=== PATIENT | male | born 1955 | race Asian ===

== ENCOUNTER 2017-05-24 21:04 | Inpatient (IN) | payer OTHER ==
--- NOTE | 2017-05-24 21:20 | PDOC ---
History of Present Illness - General History Source: Patient Exam Limitations: No Limitations - History of Present Illness Initial Comments: 05/24/17 22:21 Patient is a 61 year old male with a significant past medical history of BPH and Hep B who presents to the ED with son complaining of mid epigastric and RUQ pain since 13:00hrs today. Patient describes the pain as 8/10 in severity with no alleviating or exacerbating factors. Patient denies any vomiting, constipation, diarrhea, hematochezia or nausea. PSH - none ALL - none SH - denies any alcohol use, tobacco use, IVDU. <Ijeoma Koch - Last Filed: 05/24/17 22:20> <Kyung Cabrera - Last Filed: 05/25/17 05:05> - General Chief Complaint: Pain Stated Complaint: ABDOMINAL PAIN Time Seen by Provider: 05/24/17 21:14 Past History <Ijeoma Koch - Last Filed: 05/24/17 22:20> - Past Medical History Other medical history: denies - Psycho/Social/Smoking Cessation Hx Suicidal Ideation: No Smoking History: Never smoked <Kyung Cabrera - Last Filed: 05/25/17 05:05> - Past Medical History Allergies/Adverse Reactions: Allergies Allergy/AdvReac Type Severity Reaction Status Date / Time No Known Allergies Allergy Verified 05/24/17 21:08 Home Medications: Ambulatory Orders Tenofovir Disoproxil Fumarate [Viread] 300 mg PO DAILY 05/25/17 Review of Systems - Review of Systems Able to Perform ROS?: Yes Comments:: 05/24/17 22:21 GENERAL/CONSTITUTIONAL: No fever or chills. No weakness. HEAD, EYES, EARS, NOSE AND THROAT: No change in vision. No ear pain or discharge. No sore throat. CARDIOVASCULAR: No chest pain or shortness of breath. RESPIRATORY: No cough, wheezing, or hemoptysis. GASTROINTESTINAL: (+)abdominal pain. No nausea, vomiting, diarrhea or constipation. GENITOURINARY: No dysuria, frequency, or change in urination. MUSCULOSKELETAL: No joint or muscle swelling or pain. No neck or back pain. SKIN: No rash NEUROLOGIC: No headache, vertigo, loss of consciousness, or change in strength/ sensation. ENDOCRINE: No increased thirst. No abnormal weight change. HEMATOLOGIC/LYMPHATIC: No anemia, easy bleeding, or history of blood clots. ALLERGIC/IMMUNOLOGIC: No hives or skin allergy. <Ijeoma Koch - Last Filed: 05/24/17 22:20> *Physical Exam - Vital Signs Last Vital Signs Temp Pulse Resp BP Pulse Ox 97.4 F L 51 L 18 124/69 99 05/24/17 21:05 05/24/17 21:05 05/24/17 21:05 05/24/17 21:05 05/24/17 21:05 - Physical Exam Comments: 05/24/17 22:22 GENERAL: Awake, alert, and fully oriented, in no acute distress HEAD: No signs of trauma EYES: PERRLA, EOMI, sclera anicteric, conjunctiva clear ENT: Auricles normal inspection, hearing grossly normal, nares patent, oropharynx clear without exudates. Moist mucosa NECK: Normal ROM, supple, no lymphadenopathy, JVD, or masses LUNGS: Breath sounds equal, clear to auscultation bilaterally. No wheezes, and no crackles HEART: Regular rate and rhythm, normal S1 and S2, no murmurs, rubs or gallops ABDOMEN: (+)epigastric tenderness, rebound. Soft, normoactive bowel sounds. No guarding. No masses EXTREMITIES: Normal range of motion, no edema. No clubbing or cyanosis. No cords, erythema, or tenderness NEUROLOGICAL: Cranial nerves II through XII grossly intact. Normal speech, normal gait SKIN: Warm, Dry, normal turgor, no rashes or lesions noted. <Ijeoma Koch - Last Filed: 05/24/17 22:20> - Vital Signs Last Vital Signs Temp Pulse Resp BP Pulse Ox 97.4 F L 51 L 18 124/69 99 05/24/17 21:05 05/24/17 21:05 05/24/17 21:05 05/24/17 21:05 05/24/17 21:05 <Kyung Cabrera - Last Filed: 05/25/17 05:05> ED Treatment Course - LABORATORY CBC & Chemistry Diagram: 05/24/17 21:55 05/24/17 21:55 - Medications Given in the ED: ED Medications Discontinued Medications Generic Name Dose Route Start Last Admin Trade Name Freq PRN Reason Stop Dose Admin Acetaminophen 1,000 mg 05/24/17 22:05 05/24/17 22:18 Ofirmev Injection - IVPB 05/24/17 22:06 1,000 mg ONCE ONE Administration Morphine Sulfate 2 mg 05/24/17 21:38 05/24/17 21:55 Morphine Injection - IVPUSH 05/24/17 21:39 2 mg ONCE ONE Administration Sodium Chloride 1,000 ml 05/24/17 21:38 05/24/17 21:55 Normal Saline - IV 05/24/17 21:39 1,000 ml ONCE ONE Administration <Ijeoma Koch - Last Filed: 05/24/17 22:20> - LABORATORY CBC & Chemistry Diagram: 05/24/17 21:55 05/24/17 21:55 <Kyung Cabrera - Last Filed: 05/25/17 05:05> Medical Decision Making - Medical Decision Making 05/24/17 22:28 Pt comes with upper abdominal pain that began suddenly at 1PM while he was eating rice soup. Pt has no hx of GB disease. Only hepatitis, for which he takes antiviral meds. Pt has no Past surgical history. He is afebrile. He had an episode of intense pain after we treated with morphine (?sphincter of oddi) however on exam he has no RUQ tenderness with deep palpation and he has only mid -moderate pain with palpation of the epigastric area. It is unclear if pt's pain reflects Inferior ischemic disease of heart, or if he has pancreatic disease or if this is exacerbation of hepatitis, or it it is GB disease or gastritis and gastric perf - though pt's abd is not rigid and he has no fever.. Labs pending. We will order imaging studies based on lab results. Ofirmev and pepcid added for pain control. EKG is NSR 05/24/17 22:35 CXR is normal 05/25/17 00:34 Patient Name: Lisbeth Archuleta THIS IS A PRELIMINARYREPORT FROM [facility] EXAM: CT abdomen and pelvis with contrast IMAGES: 405 INDICATION: Epigastric pain. History of hepatitis. DATE OF SERVICE: 2017-05-24 23:42:12.0 COMPARISON : none FINDINGS: Lung bases are clear. The visualized cardiac chambers are normal size and configuration. Multiple hepatic cysts are noted. Note is made of a 7 mm nonobstructing right renal stone. Gallbladder is distended and there may be pericholecystic edema. Cholecystitis is considered. No biliary duct dilation. Normal pancreas, spleen, adrenal glands and left kidney. The stomach and abdominal small and large bowel are normal. There is no aortic aneurysm. There is no significant retroperitoneal lymphadenopathy. Small fat containing umbilical hernia noted. The pelvic small and large bowel are normal. The appendix is normal. The urinary bladder a normal. The nd prostate gland is moderately enlarged. No pelvic free fluid is identified. There is no significant pelvic lymphadenopathy. IMPRESSION: Possible cholecystitis can be correlated with ultrasound. Small nonobstructing right renal stone. Moderate prostate enlargement. THIS DOCUMENT HAS BEEN ELECTRONICALLY SIGNED Pt's son and both suffer with gallstones. Ptis feeling better after pain med cocktail, and hydration. We will send him for US to r/o cholecystitis 05/25/17 03:01 Patient Name: Lisbeth Archuleta THIS IS A PRELIMINARYREPORT FROM [facility] EXAM: Ultrasound abdomen limited, right upper quadrant and limited abdominal duplex IMAGES: 68 INDICATION: Rule out cholecystitis DATE OF SERVICE: 2017-04 01:09:19.0 COMPARISON: none FINDINGS: Right upper quadrant ultrasound: The liver is normal, without mass or biliary duct dilation. The gallbladder is distended, contains polyps and/or stones with wall thickening up to 5 mm and mild pericholecystic edema. Findings are suspicious for cholecystitis.. The CBD is not dilated and measures5 millimeters in diameter. Right kidney measures 12.3centimeters in length and is unremarkable. The visualized aorta and IVC are normal. Pancreas is partially obscured, but appears normal. Abdominal duplex: The main portal vein demonstrates normal hepatopedal flow. IMPRESSION: Suspected cholecystitis. 05/25/17 05:05 PT ADMITTED TO THE [facility]OSPITALIST FOR CHOLECYSTITS. HE RECEIVED 1 DOSE OF ZOSYN. <Kyung Cabrera - Last Filed: 05/25/17 05:05> *DC/Admit/Observation/Transfer - Attestations Scribe Attestion: 05/24/17 22:23 Documentation prepared by TERESA Flanagan, acting as medical collections specialist for Kyung Cabrera MD. <Ijeoma Koch - Last Filed: 05/24/17 22:20> - Discharge Dispostion Admit: Yes <Kyung Cabrera - Last Filed: 05/25/17 05:05> Diagnosis at time of Disposition: Cholecystitis - Discharge Dispostion Condition at time of disposition: Guarded - Referrals
[2017-05-24] MEDS ORDERED: SODIUM CHLORIDE 0.9% 500 ML INFUS.BAG IV ONE (21:38)
[2017-05-24] MEDS ORDERED: morphine CARPU-JECT 2 MG/1 ML DISP.SYRIN IVPUSH ONE (21:38)
[2017-05-24] MEDS ORDERED: morphine CARPU-JECT 4 MG/1 ML DISP.SYRIN ONE (21:41)
[2017-05-24] MEDS ORDERED: FAMOTIDINE 20 MG/50 ML IVPB 50 ML IVPB ONE ×2 (22:05→22:07)
[2017-05-24] MEDS ORDERED: ACETAMINOPHEN 1000 MG/100 ML VIAL (NON FORMULARY) IVPB ONE (22:05)
[2017-05-24] MEDS ORDERED: ACETAMINOPHEN INJECTION 100 ML IVPB ONE (22:07)
[2017-05-24 22:20] LABS: BASOPHIL 0.4 % (0-2.0); EOSINOPHIL 1.5 % (0-4.5); MCH 29.4 pg (25.7-33.7); MCHC 33.2 g/dl (32.0-35.9); MEAN CELL VOLUME 88.5 fl (80-96); MEAN PLT VOLUME 9.5 fl (7.5-11.1); NEUTROPHILS 70.4 % (42.8-82.8); PLATELET COUNT 164 K/MM3 (134-434); RDW 13.7 % (11.9-15.9); WHITE BLOOD COUNT 9.4 K/mm3 (4.0-10.0)
[2017-05-24 22:42] LABS: ALBUMIN 4.4 g/dl (3.4-5.0); ANION GAP 8 (8-16); BILIRUBIN,TOTAL 0.5 mg/dL (0.2-1.0); CALCIUM 8.8 mg/dL (8.5-10.1); CO2 27 mmol/L (21-32); CREATININE 0.7 mg/dL (0.7-1.3); GLUCOSE,RANDOM 103 mg/dL (74-106); SGOT/AST 25 U/L (15-37); SGPT/ALT 33 U/L (12-78); TOT PROT 7.7 g/dl (6.4-8.2)
[2017-05-24 22:44] LABS: ALK PHOS 68 U/L (45-117); CPK 278 IU/L (39-308); TROPONIN I < 0.02 ng/ml (0.00-0.05)
[2017-05-24] MEDS ORDERED: MAGNESIUM SULF 50% (8.12 MEQ/2 ML-1 GM VIAL) IVPB ONE (22:49)
[2017-05-24] MEDS ORDERED: POTASSIUM CHLORIDE TABS 20 MEQ TABLET.ER (FP) PO ONE (22:49)
[2017-05-24 23:28] LABS: URINE APPEARANCE CLEAR; URINE BILIRUBIN NEGATIVE (NEGATIVE); URINE BLOOD NEGATIVE (NEGATIVE); URINE COLOR LTYELLOW; URINE GLUCOSE (UA) NEGATIVE (NEGATIVE); URINE KETONE NEGATIVE (NEGATIVE); URINE LEUK ESTERASE NEGATIVE (NEGATIVE); URINE NITRITE NEGATIVE (NEGATIVE); URINE PROTEIN NEGATIVE (NEGATIVE); URINE UROBILINOGEN NEGATIVE mg/dL (0.2-1.0)
[2017-05-24 23:39] LABS: INR 1.11 (0.82-1.09); PROTHROMBIN TIME (PATIENT) 12.2 SEC (9.98-11.88)
[2017-05-25 00:31] LABS: AMYLASE 72 U/L (25-115)
[2017-05-25] MEDS ORDERED: MAGNESIUM SULF 50% (8.12 MEQ/2 ML-1 GM VIAL) ONE (00:57)
[2017-05-25] MEDS ORDERED: POTASSIUM CHLORIDE ORAL LIQUID 20 MEQ/15 ML ONE (00:57)
[2017-05-25] MEDS ORDERED: PIPERACILLIN/TAZOB 3.375 GM 3.375 GM in DEXTROSE 5%-WATER - 50 ML IVPB ONE (01:54)
[2017-05-25] MEDS ORDERED: PIPERACILLIN/TAZOB 3.375 GM 50 ML IVPB ONE (02:30)
--- NOTE | 2017-05-25 03:28 | HP ---
Admitting History and Physical - Admission Chief Complaint: ruq pain History of Present Illness: 61 yo m w hx of bph who presents to the er for eval of ruq pain for several hours. patient's dtr at bedside and provided translation. he reports pain starting yesterday in the afternoon and progressively getting worse throughout the day. he states the pain was 10/10 no aggravating alleviating factors, no radiation, unable to qualify pain. he denies feeling like this before. denies gall bladder problems in the past. he denies fever, body aches, vomiting, nausea, dysuria, diarrhea, melena. he reports having normal bm yesterday. he deneis sob, cp, heart palps, syncope. 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, denies tobacco, alcohol famhx - nc ros neg except for hpi physical gen- in nad, comfortable hent- at/nc, fercho, neck supple, trachea midline, no lymphadenopathy, mucous membrane dry resp- no cough, lungs ctab, no ronchi, no rales cards- rrr, no murmurs, no rubs, no jvd, no leg edema skin- no rash, no lesions gi- soft non-tender, no guarding, no rebound, no rigidity, no distention neuro- alert, oriented, cn 2-12 grossly intact, no seizures, speech clear, no facial droop, psych- cooperative, no agitation musk- normal arom bue/ble gu- mild right cvat, no left cvat prob list ?cholecystitis kidney stones hypokalemia abdominal pain imaging: EXAM: Ultrasound abdomen limited, right upper quadrant and limited abdominal duplex IMAGES: 68 INDICATION: Rule out cholecystitis DATE OF SERVICE: 2017-04 01:09:19.0 COMPARISON: none FINDINGS: Right upper quadrant ultrasound: The liver is normal, without mass or biliary duct dilation. The gallbladder is distended, contains polyps and/or stones with wall thickening up to 5 mm and mild pericholecystic edema. Findings are suspicious for cholecystitis.. The CBD is not dilated and measures5 millimeters in diameter. Right kidney measures 12.3centimeters in length and is unremarkable. The visualized aorta and IVC are normal. Pancreas is partially obscured, but appears normal. Abdominal duplex: The main portal vein demonstrates normal hepatopedal flow. IMPRESSION: Suspected cholecystitis. EXAM: CT abdomen and pelvis with contrast IMAGES: 405 INDICATION: Epigastric pain. History of hepatitis. DATE OF SERVICE: 2017-05-24 23:42:12.0 COMPARISON : none FINDINGS: Lung bases are clear. The visualized cardiac chambers are normal size and configuration. Multiple hepatic cysts are noted. Note is made of a 7 mm nonobstructing right renal stone. Gallbladder is distended and there may be pericholecystic edema. Cholecystitis is considered. No biliary duct dilation. Normal pancreas, spleen, adrenal glands and left kidney. The stomach and abdominal small and large bowel are normal. There is no aortic aneurysm. There is no significant retroperitoneal lymphadenopathy. Small fat containing umbilical hernia noted. The pelvic small and large bowel are normal. The appendix is normal. The urinary bladder a normal. The nd prostate gland is moderately enlarged. No pelvic free fluid is identified. There is no significant pelvic lymphadenopathy. IMPRESSION: Possible cholecystitis can be correlated with ultrasound. Small nonobstructing right renal stone. Moderate prostate enlargement. a/p- 61 yo m w hx of bph who presents to the er for eval of ruq pain for several hours. admitted for eval of their emergent condition 1. abdominal pain possibly related to cholecystitis v renal colic ctap and abd us suspicous for acute michael Hida scan Gi consult Pain control Abx (ctx) IV Fluids Npo 2. hypokalemia Replete prn Monitor labs dvt prophy scd, oob, hep sq fen npo, ivf dispo- requires > 2mn stay for ? acute cholecystitis pt dtr will bring in home meds History Source: Patient, Family Member Limitations to Obtaining History: Language Barrier - Smoking History Smoking history: Never smoked Home Medications - Allergies Allergies/Adverse Reactions: Allergies Allergy/AdvReac Type Severity Reaction Status Date / Time No Known Allergies Allergy Verified 05/24/17 21:08 - Home Medications Home Medications: Ambulatory Orders Tenofovir Disoproxil Fumarate [Viread] 300 mg PO DAILY 05/25/17 Physical Examination Vital Signs: Vital Signs Temperature 97.4 F L 05/24/17 21:05 Pulse Rate 51 L 05/24/17 21:05 Respiratory Rate 18 05/24/17 21:05 Blood Pressure 124/69 05/24/17 21:05 O2 Sat by Pulse Oximetry (%) 99 05/24/17 21:05 Labs: CBC, BMP 05/24/17 21:55 05/24/17 21:55 Visit type - Emergency Visit Emergency Visit: Yes ED Registration Date: 05/25/17 Care time: The patient presented to the Emergency Department on the above date and was hospitalized for further evaluation of their emergent condition. - New Patient This patient is new to me today: Yes Date on this admission: 05/25/17 - Critical Care Critical Care patient: No
[2017-05-25] MEDS ORDERED: SODIUM CHLORIDE 1,000 ML IV SCH (03:30)
[2017-05-25] MEDS ORDERED: HYDROmorphone HCL CARPU-JECT 1 MG/1 ML DISP.SYRIN IVPB PRN (03:30)
[2017-05-25] MEDS ORDERED: ACETAMINOPHEN 1000 MG/100 ML VIAL (NON FORMULARY) IVPB PRN (03:30)
[2017-05-25 04:34] VITALS: BMI 29.4
--- NOTE | 2017-05-25 06:37 | PN ---
Teaching Attending Note Name of Resident: Naheed Schultz ATTENDING PHYSICIAN STATEMENT: Patient is seen by me chart reviewed and discussed with the resident team, agrees with evaluation and plan of care61 yrs old chines speaking man H/O Hep B and BPH currently not on any medication present with Rt UQ pain 10/10 constant started after eating jose in the after noon associated nausea, but no vomiting or diarrhea, last BM was yesterday am, also c/o subjective chills, no fever, came to Ed for evaluation, in the ED Hypodermically stable w/u shows Distended GB with thickened wall suggestive of acute Cholycystitis Today; Miiddle aged man sleeping comfortably Vitals; Last Vital Signs Temp Pulse Resp BP Pulse Ox 99.1 F 78 18 124/69 99 05/25/17 04:27 05/25/17 04:27 05/25/17 04:27 05/25/17 04:27 05/25/17 04:39 HEENT: MM moist no anemia NECK: No JVD No Bruit CHEST: CTA B/L CVS; S1S2 R no m/g/r ABD: Obese no distention, RT UQ and epigastric tend +, rebound +, BS + EXT: No taiwo afeet, no calf tenderness, pulses + HYPERION ADMINISTRATOR: Aox3 non focal normal motor sensory exam. LABS: WBC 9.4 K/mm3 (4.0-10.0) 05/24/17 21:55 RBC 5.14 M/mm3 (4.00-5.60) 05/24/17 21:55 Hgb 15.1 GM/dL (11.7-16.9) 05/24/17 21:55 Hct 45.5 % (35.4-49) 05/24/17 21:55 MCV 88.5 fl (80-96) 05/24/17 21:55 MCH 29.4 pg (25.7-33.7) 05/24/17 21:55 MCHC 33.2 g/dl (32.0-35.9) 05/24/17 21:55 RDW 13.7 % (11.9-15.9) 05/24/17 21:55 Plt Count 164 K/MM3 (134-434) 05/24/17 21:55 MPV 9.5 fl (7.5-11.1) 05/24/17 21:55 Neutrophils % 70.4 % (42.8-82.8) 05/24/17 21:55 Lymphocytes % 22.6 % (8-40) 05/24/17 21:55 Monocytes % 5.1 % (3.8-10.2) 05/24/17 21:55 Eosinophils % 1.5 % (0-4.5) 05/24/17 21:55 Basophils % 0.4 % (0-2.0) 05/24/17 21:55 Sodium 140 mmol/L (136-145) 05/24/17 21:55 Potassium 3.4 mmol/L (3.5-5.1) L 05/24/17 21:55 Chloride 105 mmol/L (98-107) 05/24/17 21:55 Carbon Dioxide 27 mmol/L (21-32) 05/24/17 21:55 Anion Gap 8 (8-16) 05/24/17 21:55 BUN 19 mg/dL (7-18) H 05/24/17 21:55 Creatinine 0.7 mg/dL (0.7-1.3) 05/24/17 21:55 Creat Clearance w eGFR > 60 (>60) 05/24/17 21:55 Random Glucose 103 mg/dL (74-106) 05/24/17 21:55 Calcium 8.8 mg/dL (8.5-10.1) 05/24/17 21:55 Total Bilirubin 0.5 mg/dL (0.2-1.0) 05/24/17 21:55 AST 25 U/L (15-37) 05/24/17 21:55 ALT 33 U/L (12-78) 05/24/17 21:55 Alkaline Phosphatase 68 U/L (45-117) 05/24/17 21:55 Creatine Kinase 278 IU/L (39-308) 05/24/17 21:55 Creatine Kinase Index 1.9 % (0.0-5.0) 05/24/17 21:55 CK-MB (CK-2) 5.549 ng/mL (0.5-3.6) H 05/24/17 21:55 Troponin I < 0.02 ng/ml (0.00-0.05) 05/24/17 21:55 Total Protein 7.7 g/dl (6.4-8.2) 05/24/17 21:55 Albumin 4.4 g/dl (3.4-5.0) 05/24/17 21:55 Total Amylase 72 U/L (25-115) 05/24/17 21:55 Lipase 274 U/L (73-393) 05/24/17 21:55 CXR: No acute changes CT abdomen: Thickened GB wall suggestive of acute cholycystitis ABD; Ultrasound:Thickened GB wall with distention and
--- NOTE | 2017-05-25 08:10 | PN ---
Physical Exam: SUBJECTIVE: Patient seen and examined with his daughter at the bedside. Patient now states that his RUQ pain has improved, denies nausea or vomiting. Denies chest pain. Wants to eat. OBJECTIVE: In bed resting, in no acute distress + bowel sounds NPO, diet as per GI Chest xray with clear lungs, large heart Vital Signs Period Temp Pulse Resp BP Sys/Orellana Pulse Ox Last 24 Hr 99.1 F 78 18 124/69 99 GENERAL: The patient is awake, alert, and fully oriented, in no acute distress. HEAD: Normal with no signs of trauma. EYES: PERRL, extraocular movements intact, sclera anicteric, conjunctiva clear. ENT: Ears normal, nares patent, oropharynx clear without exudates, moist mucous membranes. NECK: Trachea midline, full range of motion, supple. LUNGS: Breath sounds equal, clear to auscultation bilaterally, no wheezes, no crackles, no accessory muscle use. HEART: Regular rate and rhythm, S1, S2 without murmur, rub or gallop. ABDOMEN: Soft, nontender, nondistended, normoactive bowel sounds, denies RUQ pain, denies any abdominal pain, nausea or diarrhea rebound, no hepatosplenomegaly, no masses. EXTREMITIES: no edema. NEUROLOGICAL: Normal speech, gait not observed. PSYCH: Normal mood, normal affect. SKIN: Warm, dry, normal turgor, no rashes or lesions noted Active Medications Generic Name Dose Route Start Last Admin Trade Name Freq PRN Reason Stop Dose Admin Acetaminophen 1,000 mg 05/25/17 03:30 Ofirmev Injection - IVPB 05/25/17 21:31 Q6H PRN FEVER OR PAIN Heparin Sodium (Porcine) 5,000 unit 05/25/17 10:00 Heparin - SQ BID HAIM Hydromorphone HCl 1 mg 05/25/17 03:30 Dilaudid Injection - IVPB Q6H PRN PAIN Sodium Chloride 1,000 mls @ 100 mls/hr 05/25/17 03:30 05/25/17 05:12 Normal Saline - IV 100 mls/hr ASDIR HAIM Administration Ceftriaxone Sodium 1 gm/ 50 mls @ 100 mls/hr 05/25/17 10:00 Dextrose IVPB 05/25/17 10:29 ONCE ONE Metronidazole 100 mls @ 100 mls/hr 05/25/17 10:00 Flagyl 500mg Premixed Ivpb - IVPB Q8H-IV HAIM ASSESSMENT/PLAN: Patient is a 61 year old male with a significant past medical history of BPH and hepatitis B. He presented to the ER on 05/25/2017 with complaints of RUQ pain for several hours. RUQ started yesterday and progressively worsened throughout the day. Patient denies that he has had this pain before. He denies fever, body aches, vomiting, nausea, dysuri or diarrhea. He denies shortness of breath or chest pain. GI: Possible acute Cholecystitis vs. renal colic A/P: RUQ pain improving today, denies pain on light palpation of abdomen NPO until evaluated by GI and surgery NS @ 100cc/hr On Ceftriaxone 1gram daily and Flagyl q8 Dilaudid for pain Abdominal CT scan, Abdominal u/s pending read HIDA scan ordered GI and surgery consulted by night team Hepatitis B A/P: On Tenofovir 300mg PO daily Hold as pt is NPO Cardiology: EKG 05/25/2017: sinus bradycardia @51 Troponin x 1 negative Denies chest pain, shortness of breath F.E.N. Fluids: Normal saline @100cc/hr Electrolytes: mild hypokalemia @3.4, monitor and replete if continues to trend down Nutrition: NPO, bowel rest Prophylaxis: GI: Protonix ivpb DVT: Heparin BID, ambulation. Disposition: Requires hospitalization for his acute medical condition. Full Code. Visit type - Emergency Visit Emergency Visit: Yes ED Registration Date: 05/25/17 Care time: The patient presented to the Emergency Department on the above date and was hospitalized for further evaluation of their emergent condition. - New Patient This patient is new to me today: Yes Date on this admission: 05/25/17 - Critical Care Critical Care patient: No - Discharge Referral Referred to [facility] No
[2017-05-25 08:21] LABS: INR 1.23 (0.82-1.09); PROTHROMBIN TIME (PATIENT) 13.6 SEC (9.98-11.88)
[2017-05-25 08:29] LABS: ALBUMIN 3.9 g/dl (3.4-5.0); ALK PHOS 83 U/L (45-117); ANION GAP 8 (8-16); BILIRUBIN,TOTAL 1.5 mg/dL (0.2-1.0); CALCIUM 8.3 mg/dL (8.5-10.1); CO2 24 mmol/L (21-32); CREATININE 0.6 mg/dL (0.7-1.3); GLUCOSE,RANDOM 101 mg/dL (74-106); SGOT/AST 189 U/L (15-37); SGPT/ALT 156 U/L (12-78); TOT PROT 6.4 g/dl (6.4-8.2)
[2017-05-25 09:00] LABS: MCH 29.8 pg (25.7-33.7); MCHC 33.6 g/dl (32.0-35.9); MEAN CELL VOLUME 88.7 fl (80-96); MEAN PLT VOLUME 9.2 fl (7.5-11.1); PLATELET COUNT 129 K/MM3 (134-434); RDW 13.5 % (11.9-15.9); WHITE BLOOD COUNT 11.6 K/mm3 (4.0-10.0)
[2017-05-25] MEDS: METRONIDAZOLE 500 MG PREMIXED 100 ML IVPB SCH ×2 (09:30→17:40)
[2017-05-25] MEDS ORDERED: CEFTRIAXONE 1 GM in DEXTROSE 5%-WATER - 50 ML IVPB ONE (10:00)
[2017-05-25] MEDS ORDERED: PANTOPRAZOLE SODIUM 100 ML IVPB SCH (10:00)
[2017-05-25 10:23] LABS: PLATELET ESTIMATE SLT DECREASED (NORMAL)
[2017-05-25] MEDS: KCL 10 MEQ IVPB 100 ML IVPB SCH ×4 (10:47→23:54)
[2017-05-25] MEDS ORDERED: cefTRIAXone SODIUM 1 GM VIAL ONE (11:00)
[2017-05-25] MEDS ORDERED: DEXTROSE 5%-WATER - 50 ML IVPB ONE (11:00)
[2017-05-25] MEDS: HEPARIN NA (PORCINE) 5,000 UNITS/ML 1ML VIAL SQ SCH ×2 (11:14→21:31)
[2017-05-25] MEDS ORDERED: PANTOPRAZOLE SODIUM 40 MG VIAL ONE (12:00)
[2017-05-25] MEDS ORDERED: SODIUM CHLORIDE 100 ML IVPB ONE (12:01)
[2017-05-25] MEDS: PANTOPRAZOLE SODIUM 40 MG in SODIUM CHLORIDE 100 ML IVPB SCH (12:10)
[2017-05-25] MEDS ORDERED: KCL 10 MEQ IVPB 100 ML IVPB SCH (14:45)
[2017-05-25] MEDS: SODIUM CHLORIDE 0.9%/KCL 1,000 ML IV SCH (14:57)
--- NOTE | 2017-05-25 14:58 | PN ---
Progress Note (short form) - Note Progress Note: GI CONSULTATION: SEE COMPLETE DICTATION HX VIA SON TRANSLATING 61 M BPH/CHRONIC HBV ON VIREAD ADMIT WITH ACUTE CHOLECYSITITS WITHOUT EVIDENC OF BILIARY OBSTRUCTION OR BILIARY SEPSIS/ CHOLANGITIS NORMAL BILIARY DUCTS AND SUSPECT LFT RISE REFLECTS HOT GB ON LIVER BED AGREE WITH NPO/IVF/PAIN MEDS/IV ABX/ CHOLECYSTECTOMY PT TO F/U HBV OUTPATIENT WITH HIS DR IN [facility] [place] THANKS, MD BRIDGER
--- NOTE | 2017-05-25 17:33 | EKG ---
Test Reason : Blood Pressure : / mmHG Vent. Rate : 051 BPM Atrial Rate : 051 BPM P-R Int : 174 ms QRS Dur : 118 ms QT Int : 480 ms P-R-T Axes : 030 004 024 degrees QTc Int : 442 ms SINUS BRADYCARDIA NON-SPECIFIC INTRA-VENTRICULAR CONDUCTION DELAY ATRIAL ABNORMALITY BORDERLINE ECG NO PREVIOUS ECGS AVAILABLE CLINICAL CORRELATION IS RECOMMENDED AND F/U TRACING INDICATED Confirmed by ABBY MARTINI MD ([id number] on 05/25/2017 5:33:06 PM Referred By: Confirmed By:ABBY MARTINI MD
[2017-05-26] MEDS: KCL 10 MEQ IVPB 100 ML IVPB SCH (01:10)
[2017-05-26] MEDS: METRONIDAZOLE 500 MG PREMIXED 100 ML IVPB SCH ×3 (01:36→17:49)
[2017-05-26 07:03] LABS: BASOPHIL 0.1 % (0-2.0); EOSINOPHIL 0.1 % (0-4.5); MCH 29.9 pg (25.7-33.7); MCHC 34.2 g/dl (32.0-35.9); MEAN CELL VOLUME 87.6 fl (80-96); MEAN PLT VOLUME 9.2 fl (7.5-11.1); PLATELET COUNT 109 K/MM3 (134-434); RDW 13.3 % (11.9-15.9); WHITE BLOOD COUNT 8.1 K/mm3 (4.0-10.0)
[2017-05-26 07:28] LABS: ALBUMIN 3.2 g/dl (3.4-5.0); ALK PHOS 80 U/L (45-117); ANION GAP 8 (8-16); BILIRUBIN,TOTAL 1.3 mg/dL (0.2-1.0); CALCIUM 7.7 mg/dL (8.5-10.1); CO2 22 mmol/L (21-32); CREATININE 0.6 mg/dL (0.7-1.3); GLUCOSE,RANDOM 110 mg/dL (74-106); MAGNESIUM 2.2 mg/dL (1.8-2.4); SGOT/AST 115 U/L (15-37); SGPT/ALT 150 U/L (12-78); TOT PROT 5.9 g/dl (6.4-8.2)
[2017-05-26] MEDS ORDERED: SODIUM CHLORIDE 200 ML IVPB ONE (10:36)
[2017-05-26] MEDS ORDERED: PANTOPRAZOLE SODIUM 40 MG VIAL ONE (10:36)
[2017-05-26] MEDS: PANTOPRAZOLE SODIUM 40 MG in SODIUM CHLORIDE 100 ML IVPB SCH (10:40)
[2017-05-26] MEDS: HEPARIN NA (PORCINE) 5,000 UNITS/ML 1ML VIAL SQ SCH ×2 (10:40→21:36)
--- NOTE | 2017-05-26 12:20 | CONS ---
DATE OF CONSULTATION: 05/25/2017 I was asked by the attending, Dr. Casper to evaluate this patient for cholecystitis. HISTORY: The patient is a 61-year-old male who cannot speak much Cuban. The history comes at the bedside via translation from his son. Apparently, he has a past medical history of an enlarged prostate as well as chronic hepatitis B, and he is on Viread by a tankerman in [place], [place]. The patient came in acutely with onset yesterday afternoon several hours of right upper quadrant pain that got worse throughout the day and became 10/10. He came to the hospital. The pain went somewhat to the back and the mid epigastric region. He denied nausea, vomiting, previous chills, and sweats. He thought he had to move his bowels but could not. He was not having any shortness of breath, chest pain, or palpitations. He has never had pain like this before and was not aware of having any gallbladder disease in the past. The patient currently was born in [place]. 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 He is . He does not smoke or drink. FAMILY HISTORY: Noncontributory. PAST SURGICAL HISTORY: He has not had significant surgery in the past. MEDICATIONS: As an outpatient, as noted, his medications include Viread here in the hospital. He was placed on Tylenol, Flagyl, Dilaudid, Protonix, and potassium. It looks like he also was getting some Zosyn. REVIEW OF SYSTEMS: Currently, the patient tells me he is feeling somewhat improved but still in pain in the right upper quadrant. He is not having fevers, chills, or sweats. No rigors. No nausea or vomiting. He does not feel hungry, and he is not moving his bowels at the present time. PHYSICAL EXAMINATION: General: He appears comfortable lying still. Vital Signs: Stable. His T-max is 99, his blood pressure is 130/64. He is not tachycardic. HEENT: Sclerae anicteric. Neck: Supple. Abdomen: Flat, symmetric. No significant scarring. There is tenderness to palpation deeply in the right upper quadrant. There are no masses, rebound, or guarding. LABORATORY DATA: Notable in that his white count has gone from 9.4 to 11.6 with a hemoglobin 14, hematocrit 42 and 129,000 platelets. His chemistries reveal serum sodium 140, potassium 3.1, chloride 108, bicarbonate 24, BUN 13, creatinine 0.6, calcium 8.3, total bilirubin 1.5, AST 189, ALT 156, alkaline phosphatase 83. It appeared on admission these numbers were much improved with an AST 25, ALT 33, and alkaline phosphatase 68. His albumin was 3.9. His lipase and amylase are both within normal limits. As noted, he had a sonogram that is consistent with cholecystitis. There is significant wall thickening of the gallbladder with polyp and stone. There is pericholecystic fluid. The bile ducts appear nondistended and normal in appearance with a common bile duct of 5 mm. CAT scan revealed similar findings. There is a small fat-containing umbilical hernia. Again, it is consistent with a possible cholecystitis. There is no evidence of any ductal dilatation at this time. There is a 7-mm nonobstructing right renal stone. IMPRESSION: The patient is a 61-year-old gentleman with benign prostatic hypertrophy and chronic hepatitis B on Viread who has a history that he is followed by the tankerman in [place]. He comes in now with right upper quadrant pain and findings both clinically, biochemically, and radiographically consistent with acute cholecystitis. At the present time, there is no evidence of what appears to be cholangitis or biliary sepsis or significant biliary ductal dilatation to necessitate a preoperative biliary imaging. RECOMMENDATIONS: For now would be that the patient be kept n.p.o. on IV fluid, IV antibiotics, and pain medications and that he likely will need a cholecystectomy when the surgeon feels it would be prudent. If needed, a HIDA scan could be performed. It would be better to obtain this sooner than later for diagnostic purposes. We will continue to be available to aid in the management of this patient. HUNTER SPARKS M.D. [id number]
--- NOTE | 2017-05-26 15:43 | PN ---
Physical Exam: SUBJECTIVE: Patient seen and examined with his son and at the bedside. Patient now states that his RUQ pain has improved, denies nausea or vomiting. Denies chest pain. Wants to eat. OBJECTIVE: In bed resting, in no acute distress + bowel sounds NPO, diet as per GI - awaiting surgical consult Chest xray with clear lungs, large heart Vital Signs Period Temp Pulse Resp BP Sys/Orellana Pulse Ox Last 24 Hr 56 F-99.7 F 50-62 16-20 100-146/49-73 GENERAL: The patient is awake, alert, and fully oriented, in no acute distress. HEAD: Normal with no signs of trauma. EYES: PERRL, extraocular movements intact, sclera anicteric, conjunctiva clear. ENT: Ears normal, nares patent, oropharynx clear without exudates, moist mucous membranes. NECK: Trachea midline, full range of motion, supple. LUNGS: Breath sounds equal, clear to auscultation bilaterally, no wheezes, no crackles, no accessory muscle use. HEART: Regular rate and rhythm, S1, S2 without murmur, rub or gallop. ABDOMEN: Soft, nontender, nondistended, normoactive bowel sounds, denies RUQ pain, denies any abdominal pain, nausea or diarrhea rebound, no hepatosplenomegaly, no masses. EXTREMITIES: no edema. new left arm skin tear, bacitracin ordered BID NEUROLOGICAL: Normal speech, gait not observed. PSYCH: Normal mood, normal affect. SKIN: Warm, dry, normal turgor, no rashes or lesions noted Laboratory Results - last 24 hr 05/25/17 05/25/17 05/26/17 07:00 19:15 05:55 WBC 8.1 D RBC 4.58 Hgb 13.7 Hct 40.1 MCV 87.6 MCH 29.9 MCHC 34.2 RDW 13.3 Plt Count 109 L MPV 9.2 Neutrophils % 88.0 H Lymphocytes % 5.5 L D Monocytes % 6.3 Eosinophils % 0.1 D Basophils % 0.1 Sodium Potassium 3.2 L Chloride Carbon Dioxide Anion Gap BUN Creatinine Creat Clearance w eGFR Random Glucose Calcium Magnesium Total Bilirubin AST ALT Alkaline Phosphatase Total Protein Albumin Blood Type O POSITIVE Antibody Screen Positive H Antibody Identification NON-SPECIFIC COLD AGGLUTININS Antigen Identification Fyb Antigen - NEGATIVE 05/26/17 05:55 WBC RBC Hgb Hct MCV MCH MCHC RDW Plt Count MPV Neutrophils % Lymphocytes % Monocytes % Eosinophils % Basophils % Sodium 139 Potassium 3.5 Chloride 109 H Carbon Dioxide 22 Anion Gap 8 BUN 12 Creatinine 0.6 L Creat Clearance w eGFR > 60 Random Glucose 110 H Calcium 7.7 L Magnesium 2.2 Total Bilirubin 1.3 H AST 115 H D ALT 150 H Alkaline Phosphatase 80 Total Protein 5.9 L Albumin 3.2 L Blood Type Antibody Screen Antibody Identification Antigen Identification Active Medications Generic Name Dose Route Start Last Admin Trade Name Freq PRN Reason Stop Dose Admin Heparin Sodium (Porcine) 5,000 unit 05/25/17 10:00 05/26/17 10:40 Heparin - SQ 5,000 unit BID HAIM Administration Hydromorphone HCl 1 mg 05/25/17 03:30 Dilaudid Injection - IVPB Q6H PRN PAIN Metronidazole 100 mls @ 100 mls/hr 05/25/17 10:00 05/26/17 11:12 Flagyl 500mg Premixed Ivpb - IVPB 100 mls/hr Q8H-IV HAIM Administration Pantoprazole Sodium 40 mg/ 100 mls @ 200 mls/hr 05/25/17 11:30 05/26/17 10:40 Sodium Chloride IVPB 200 mls/hr DAILY HAIM Administration Potassium Chloride/Sodium Chloride 1,000 mls @ 75 mls/hr 05/25/17 14:45 14:57 Ns+20 Meq Kcl - IV 75 mls/hr ASDIR HAIM Administration Ceftriaxone Sodium 1 gm/ 100 mls @ 200 mls/hr 05/26/17 15:45 Dextrose IVPB DAILY HAIM ASSESSMENT/PLAN: Patient is a 61 year old male with a significant past medical history of BPH and hepatitis B. He presented to the ER on 05/25/2017 with complaints of RUQ pain for several hours that progressively worsened throughout the day. Patient denies that he has had this pain before. He denies fever, body aches, vomiting, nausea, dysuria or diarrhea. He denies shortness of breath or chest pain. Imaging: Abdominal CT: 05/25/2017: suggestive of acute cholecystitis, no biliary dilatation, 5mm non obstructing renal calculus seen gall bladder mildly overdistended with mild diffuse wall thickening and trace pericholecystic fluid accumulation GI: Acute Cholecystitis A/P: RUQ pain improving today, denies pain on light palpation of abdomen GI notes reviewed, surgical consult pending Continue NPO NS @ 100cc/hr On Ceftriaxone 1gram daily and Flagyl q8 Dilaudid for pain HIDA scan ordered Transaminitis - acute A/P: AST 25>189>115 ALT 33>156>150 Bilirubin 1.3 Hepatitis B A/P: On Tenofovir 300mg PO daily Hold as pt is NPO Cardiology: EKG 05/25/2017: sinus bradycardia @51 Troponin x 1 negative Denies chest pain, shortness of breath F.E.N. Fluids: NS +20meq @ 75cc/hr Electrolytes: hypokalemia resolved Nutrition: NPO, bowel rest - diet as per surgery Prophylaxis: GI: Protonix ivpb DVT: Heparin BID, ambulation. Disposition: Requires hospitalization for his acute medical condition. Full Code. Visit type - Emergency Visit Emergency Visit: Yes ED Registration Date: 05/25/17 Care time: The patient presented to the Emergency Department on the above date and was hospitalized for further evaluation of their emergent condition. - New Patient This patient is new to me today: No - Critical Care Critical Care patient: No - Discharge Referral Referred to [facility] Med P.C.: No
[2017-05-26] MEDS ORDERED: cefTRIAXone SODIUM 1 GM VIAL ONE (16:21)
[2017-05-26] MEDS ORDERED: DEXTROSE 5%-WATER - 50 ML IVPB ONE (16:21)
[2017-05-26] MEDS: BACITRACIN 15 GM TUBE TOPICAL OINTMENT TP SCH ×2 (16:28→21:36)
[2017-05-26] MEDS: CEFTRIAXONE 1 GM in DEXTROSE 5%-WATER - 50 ML IVPB SCH (16:28)
[2017-05-26] MEDS: SODIUM CHLORIDE 0.9%/KCL 1,000 ML IV SCH (16:30)
--- NOTE | 2017-05-26 18:03 | CONSULT ---
- Consultation REQUESTING PROVIDER: ER MD CONSULT REQUEST: We have been asked to surgically evaluate this patient for possible acute cholecystitis PCP:Jose Luis Casper NP HISTORY OF PRESENT ILLNESS:61 y/o Beninese male w/a h/o Hepatitis B presented w/sudden onset epigastric and RUQ abdominal pain05/24-05/25; w/u was done and was c/w " acute cholecystitis"; further w/u revealed no cholelithiasis and HIDA scan today was negative for cystic duct obstruction; he has no c/o today and wants to eat; he had an US 2 weeks ago in [place] w/his PCP/GI physican who made no mention of an gallbladder stones or other abnormal finding ; he denies dark urine/light stools; he would like to avoid surgery a/t his son. PMHx: BPH; hepatitis B PSHx: none Home Medications Medication Instructions Recorded Tenofovir Disoproxil Fumarate 300 mg PO DAILY 05/25/17 [Viread] Allergies Allergy/AdvReac Type Severity Reaction Status Date / Time No Known Allergies Allergy Verified 05/24/17 21:08 PHYSICAL EXAM: GENERAL: Awake, alert, and fully oriented, in no acute distress. HEAD: Normal with no signs of trauma. EYES: sclera anicteric, conjunctiva clear. NECK: Normal ROM, supple without lymphadenopathy, JVD, or masses. ABDOMEN: Soft, nontender, not distended, normoactive bowel sounds, no guarding, no rebound, no masses. No organomegaly. No hernias MUSCULOSKELETAL: Normal ROM at all joints. No bony deformities or tenderness. No CVA tenderness. UPPER EXTREMITIES: 2+ pulses, warm, well-perfused. No cyanosis. Cap refill <2 seconds. No peripheral edema. LOWER EXTREMITIES: 2+ pulses, warm, well-perfused. No calf tenderness. No peripheral edema. NEUROLOGICAL: Normal speech, gait not observed. PSYCH: Cooperative. Good eye contact. Appropriate mood and affect. SKIN: Warm, dry, normal turgor, no rashes or lesions noted. Vital Signs Temperature 56 F L 05/26/17 14:58 Pulse Rate 56 L 05/26/17 14:58 Respiratory Rate 18 05/26/17 09:00 Blood Pressure 138/68 05/26/17 14:58 O2 Sat by Pulse Oximetry (%) 99 05/25/17 04:39 Lab Results WBC 8.1 K/mm3 (4.0-10.0) D 05/26/17 05:55 RBC 4.58 M/mm3 (4.00-5.60) 05/26/17 05:55 Hgb 13.7 GM/dL (11.7-16.9) 05/26/17 05:55 Hct 40.1 % (35.4-49) 05/26/17 05:55 MCV 87.6 fl (80-96) 05/26/17 05:55 MCHC 34.2 g/dl (32.0-35.9) 05/26/17 05:55 RDW 13.3 % (11.9-15.9) 05/26/17 05:55 Plt Count 109 K/MM3 (134-434) L 05/26/17 05:55 Sodium 139 mmol/L (136-145) 05/26/17 05:55 Potassium 3.5 mmol/L (3.5-5.1) 05/26/17 05:55 Chloride 109 mmol/L (98-107) H 05/26/17 05:55 Carbon Dioxide 22 mmol/L (21-32) 05/26/17 05:55 Anion Gap 8 (8-16) 05/26/17 05:55 BUN 12 mg/dL (7-18) 05/26/17 05:55 Creatinine 0.6 mg/dL (0.7-1.3) L 05/26/17 05:55 Random Glucose 110 mg/dL (74-106) H 05/26/17 05:55 Calcium 7.7 mg/dL (8.5-10.1) L 05/26/17 05:55 Blood Type O POSITIVE 05/25/17 09:02 Antibody Screen Positive H 05/25/17 07:00 INR 1.23 (0.82-1.09) H 05/25/17 06:30 Imaging w/u to date reviewed. IMP:epigastric/RUQ pain PLAN; Discussion of all imaging findings and there implications; they want to f/ u w/his PCP/GI physician in [place]; he does not want to have surgery; if he truly has gallbladder polyps that are > 1.0 cm. 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 Amadou No MD FACS Visit type - Case Type Case Type: ED Admission - Emergency Emergency Visit: Yes ED Registration Date: 05/25/17 Care time: The patient presented to the Emergency Department on the above date and was hospitalized for further evaluation of their emergent condition. - New patient This patient is new to me today: Yes Date on this admission: 05/26/17 - Critical Care Critical Care patient: No
[2017-05-27] MEDS: METRONIDAZOLE 500 MG PREMIXED 100 ML IVPB SCH ×2 (02:42→10:59)
[2017-05-27 07:51] LABS: BASOPHIL 0.3 % (0-2.0); EOSINOPHIL 0.3 % (0-4.5); MCH 30.1 pg (25.7-33.7); MCHC 34.3 g/dl (32.0-35.9); MEAN CELL VOLUME 87.5 fl (80-96); MEAN PLT VOLUME 9.5 fl (7.5-11.1); PLATELET COUNT 102 K/MM3 (134-434); RDW 13.6 % (11.9-15.9)
[2017-05-27 07:51] LABS: ALBUMIN 3.4 g/dl (3.4-5.0); ALK PHOS 95 U/L (45-117); ANION GAP 7 (8-16); BILIRUBIN,TOTAL 0.7 mg/dL (0.2-1.0); CALCIUM 8.2 mg/dL (8.5-10.1); CO2 23 mmol/L (21-32); CREATININE 0.7 mg/dL (0.7-1.3); GLUCOSE,RANDOM 104 mg/dL (74-106); SGOT/AST 66 U/L (15-37); SGPT/ALT 114 U/L (12-78); TOT PROT 6.2 g/dl (6.4-8.2)
[2017-05-27] MEDS ORDERED: cefTRIAXone SODIUM 1 GM VIAL ONE (09:16)
[2017-05-27] MEDS ORDERED: DEXTROSE 5%-WATER - 50 ML IVPB ONE (09:17)
[2017-05-27] MEDS: BACITRACIN 15 GM TUBE TOPICAL OINTMENT TP SCH (09:24)
[2017-05-27] MEDS: CEFTRIAXONE 1 GM in DEXTROSE 5%-WATER - 50 ML IVPB SCH (09:25)
[2017-05-27] MEDS: HEPARIN NA (PORCINE) 5,000 UNITS/ML 1ML VIAL SQ SCH (09:26)
[2017-05-27 09:38] VITALS: BP 104/65; PULSE 64; TEMP 99
[2017-05-27] MEDS ORDERED: SODIUM CHLORIDE 100 ML IVPB ONE (10:16)
[2017-05-27] MEDS ORDERED: PANTOPRAZOLE SODIUM 40 MG VIAL ONE (10:16)
[2017-05-27] MEDS: PANTOPRAZOLE SODIUM 40 MG in SODIUM CHLORIDE 100 ML IVPB SCH (10:18)
--- NOTE | 2017-05-27 10:30 | PN ---
Progress Note (short form) - Note Progress Note: Attending Surgeon No c/o; tolerated clear liquids VSS AF abdomen benign IMP: improved PLAN: Advance diet and d/c to OPD f/u with his GI specialist in [place] at his and familys request. Amadou No MD FACS
--- NOTE | 2017-05-27 11:40 | DS ---
Physical Exam: SUBJECTIVE: Patient seen and examined at bedside. OBJECTIVE: Vital Signs Period Temp Pulse Resp BP Sys/Orellana Pulse Ox Last 24 Hr 56 F-99.0 F 55-64 20-20 104-143/65-79 PHYSICAL EXAM GENERAL: The patient is awake, alert, and fully oriented, in no acute distress. HEAD: Normal with no signs of trauma. EYES: PERRL, extraocular movements intact, sclera anicteric, conjunctiva clear. HEART: Regular rate and rhythm, S1, S2 without murmur, rub or gallop. ABDOMEN: Soft, nontender, nondistended, normoactive bowel sounds, no guarding, no rebound EXTREMITIES: 2+ pulses, warm, well-perfused, no edema. NEUROLOGICAL: Cranial nerves II through XII grossly intact. Normal speech, gait not observed. Laboratory Results - last 24 hr 05/27/17 05/27/17 06:00 06:10 WBC 5.0 D RBC 4.66 Hgb 14.0 Hct 40.8 MCV 87.5 MCH 30.1 MCHC 34.3 RDW 13.6 Plt Count 102 L MPV 9.5 Neutrophils % 77.0 Lymphocytes % 11.4 D Monocytes % 11.0 H Eosinophils % 0.3 D Basophils % 0.3 Sodium 139 Potassium 3.3 L Chloride 109 H Carbon Dioxide 23 Anion Gap 7 L BUN 10 Creatinine 0.7 Creat Clearance w eGFR > 60 Random Glucose 104 Calcium 8.2 L Total Bilirubin 0.7 D AST 66 H D ALT 114 H D Alkaline Phosphatase 95 Total Protein 6.2 L Albumin 3.4 HOSPITAL COURSE: Date of Admission:05/25/17 Date of Discharge: 05/27/17 Pre hospital course Patient is a 61 year old male with a significant past medical history of BPH and hepatitis B. He presented to the ER on 05/25/2017 with complaints of RUQ pain for several hours that progressively worsened throughout the day. Patient denied that he had this pain before. He denied fever, body aches, vomiting, nausea, dysuria or diarrhea. He denied shortness of breath or chest pain. Hospital course Imaging 05/24 CTAP: Abdominal CT: suggestive of acute cholecystitis, no biliary tract dilatation 05/25 US: probable acute cholecystitis, gallbladder polyps, most prominent measuring 1 x 0.3cm 05/26 HIDA: negative for cystic duct obstruction Acute Cholecystitis --without evidence of biliary obstruction or biliary sepsis/cholangitis --symptoms resolved --seen and evaluated by surgery, patient does not want surgery at this time, will follow up with his PCP in [place] --patient advised if he truly has gallbladder polyps >1.0cm he should have an elective lap michael --started briefly on ceftriaxone and metronidazle but stopped Transaminitis --trending down Hyperbilirubinemia, resolved --Total bili 1.5 on admission, 0.7 on discharge Hepatitis B --on Tenofovir Minutes to complete discharge: 35 Discharge Summary Reason For Visit: CHOLECYSTITIS Current Active Problems Cholecystitis (Acute) Condition: Improved - Instructions Diet, Activity, Other Instructions: It is important to follow up with your primary care provider, Dr. Jamie Atkinson. If Dr. Atkinson has any questions, please have him call Dr. Amadou No, the surgeon who evaluated you during your hospital stay ([phone]). Return to the emergency department for any new or worsening symptoms. Referrals: Jamie Atkinson Dr. [Other] Disposition: HOME - Home Medications Comprehensive Discharge Medication List: Ambulatory Orders Tenofovir Disoproxil Fumarate [Viread -] 300 mg PO DAILY 05/25/17 This patient is new to me today: Yes Date on this admission: 05/29/17 Emergency Visit: No Critical Care patient: No - Discharge Referral Referred to [facility] Med P.C.: No
== END 2017-05-27 12:16 | disposition home or self-care (01) ==
LOC: JER 21:04 → JERBED 05-25 03:01 → UNDOADMIN 05-25 03:07 → JERBED 05-25 03:07 → J6S 05-25 04:17
PROVIDERS: ADMIT Internal Medicine; ATTEND Nurse Practitioner Acute Care
DX: K81.0 Acute cholecystitis (principal); R74.0 Nonspecific elevation of levels of transaminase and lactic acid dehydrogenase [LDH]; E80.6 Other disorders of bilirubin metabolism; B19.10 Unspecified viral hepatitis B without hepatic coma; N40.0 Benign prostatic hyperplasia without lower urinary tract symptoms; E87.6 Hypokalemia; R00.1 Bradycardia, unspecified
CPT/HCPCS: 36415; 71010-TC; 74177-TC; 76705-TC; 78226-TC; 80053; 81003; 82150; 83690; 83735; 84132; 84484; 85025; 85610; 86850; 86870; 86900; 86901; 86902; 87086; 93005; 93010; 99283-25; A9537; J1644

== ENCOUNTER 2018-12-11 15:33 | Emergency (ER) | payer OTHER ==
[2018-12-11 15:42] VITALS: BP 136/83; PULSE 66; TEMP 98.8; BMI 25.0
[2018-12-11] MEDS ORDERED: IBUPROFEN 600 MG TABLET (FP) PO ONE ×2 (16:46→16:49)
[2018-12-11] MEDS ORDERED: DIPHTH,PERTUSS(ACELL),TET 0.5 ML DISP.SYRIN IM ONE ×2 (16:46→16:49)
--- NOTE | 2018-12-11 17:03 | PDOC ---
History of Present Illness - General Chief Complaint: Laceration Stated Complaint: LAC LEFT PALM Time Seen by Provider: 12/11/18 16:00 History Source: Patient Exam Limitations: No Limitations - History of Present Illness Initial Comments: 12/11/18 16:59 63 year old male with no medical or surgical history presents with laceration to left palm by knife today at 11am. 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 Reports pain at site. Timing/Duration: reports: just prior to arrival Severity: Yes: mild Location: reports: hands Respiratory Risk Factors: reports: no cause identified Modifying Factors: improves with: other (no intervention) Associated Symptoms: reports: denies symptoms Past History - Travel Traveled outside of the country in the last 30 days: No Close contact w/someone who was outside of country & ill: No - Past Medical History Allergies/Adverse Reactions: Allergies Allergy/AdvReac Type Severity Reaction Status Date / Time No Known Allergies Allergy Verified 12/11/18 15:39 Home Medications: Ambulatory Orders Tenofovir Disoproxil Fumarate [Viread -] 300 mg PO DAILY 05/25/17 COPD: No Disorders: Yes (bph) - Suicide/Smoking/Psychosocial Hx Smoking History: Unknown if ever smoked Hx Alcohol Use: No Drug/Substance Use Hx: No Hx Substance Use Treatment: No Review of Systems - Review of Systems Able to Perform ROS?: Yes Is the patient limited Tuvaluan proficient: No Constitutional: No: Chills, Fever, Loss of Appetite HEENTM: No: Ear Pain, Nose Congestion, Throat Pain, Throat Swelling Respiratory: No: Orthopnea, Wheezing Cardiac (ROS): No: Lightheadedness ABD/GI: No: Nausea, Poor Appetite, Vomiting, Indigestion : No: Incontinence, Testicular Swelling Musculoskeletal: Yes: Other Integumentary: Yes: Other (laceration to left hand ) Neurological: No: Headache, Numbness, Weakness Endocrine: No: Increased Urine *Physical Exam - Vital Signs Last Vital Signs Temp Pulse Resp BP Pulse Ox 98.8 F 66 18 136/83 97 12/11/18 15:40 12/11/18 15:40 12/11/18 15:40 12/11/18 15:40 12/11/18 15:40 - Physical Exam General Appearance: Yes: Nourished HEENT: positive: Pharynx Normal Neck: positive: Supple. negative: Lymphadenopathy (R), Lymphadenopathy (L) Respiratory/Chest: positive: Lungs Clear. 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 NML intact, Fully Oriented Moderate Sedation - Procedure Monitoring Vital Signs: Procedure Monitoring Vital Signs Temperature 98.8 F 12/11/18 15:40 Pulse Rate 66 12/11/18 15:40 Respiratory Rate 18 12/11/18 15:40 Blood Pressure 136/83 12/11/18 15:40 O2 Sat by Pulse Oximetry (%) 97 12/11/18 15:40 Procedures - Laceration/Wound Repair Left Hand Wound Length: 2.6 to 5.0 cm Wound Explored: clean Wound's Depth, Shape: superficial Irrigated w/ Saline: Yes Betadine Prep: Yes Anesthesia: 2% Lidocaine Amount of Anesthetic (ccs): 10 Wound Debrided: minimal Wound Repaired With: Sutures Suture Size/Type: 4:0 Number of Sutures: 6 Layer Closure: No Sterile Dressing Applied: Yes Splint Applied: No Sling Applied: No ED Treatment Course - Medications Given in the ED: ED Medications Discontinued Medications Generic Name Dose Route Start Last Admin Trade Name Freq PRN Reason Stop Dose Admin Diphtheria/Tetanus/Acell Pertussis 0.5 ml 12/11/18 16:46 12/11/18 16:52 Boostrix - IM 12/11/18 16:47 0.5 ml .ONCE ONE Administration Ibuprofen 600 mg 12/11/18 16:46 12/11/18 16:54 Motrin - PO 12/11/18 16:47 600 mg ONCE ONE Administration Medical Decision Making - Medical Decision Making 12/11/18 17:02 63 year old male with no medical or surgical history presents with laceration to left palm by knife today at 11am Plan tetanus vaccine analgesia laceration repair *DC/Admit/Observation/Transfer Diagnosis at time of Disposition: Laceration - Discharge Dispostion Disposition: HOME Condition at time of disposition: Good - Referrals - Patient Instructions Printed Discharge Instructions: DI for Laceration Repair Additional Instructions: Please keep dressing in place and dry until 12/12/2018 5pm Remove dressing in 24 hours may was gently with mild soap daily May cover with bandaid and use glove while cooking may apply bacitracin to wound daily Return to emergency room 12/20/18 for suture removal - Post Discharge Activity Forms/Work/School Notes: Back to Work
== END 2018-12-11 17:00 | disposition home or self-care (01) ==
LOC: JERFT 15:33
PROC: 3E0234Z Introduction of Serum, Toxoid and Vaccine into Muscle, Percutaneous Approach (ICD-10-PCS; principal; 2018-12-11)
PROC: 0HQGXZZ Repair Left Hand Skin, External Approach (ICD-10-PCS; 2018-12-11)
DX: S61.412A Laceration without foreign body of left hand, initial encounter (principal); W26.0XXA Contact with knife, initial encounter; Y93.G9 Activity, other involving cooking and grilling; Y92.511 Restaurant or cafe as the place of occurrence of the external cause; Y99.8 Other external cause status
CPT/HCPCS: 90715; 99282-25

== ENCOUNTER 2018-12-21 15:08 | Emergency (ER) | payer OTHER ==
[2018-12-21 15:24] VITALS: BP 115/73; PULSE 68; TEMP 98.6; BMI 29.9
--- NOTE | 2018-12-21 15:39 | PDOC ---
Suture Removal/Wound Check HPI - History of Present Illness Chief Complaint: Suture/Staple Removal(Here) Stated Complaint: SUTURE REMOVAL Time Seen by Provider: 12/21/18 15:27 History Source: Yes: Patient Exam Limitations: Yes: No Limitations - Previous ED Treatment Type of procedure performed on last visit: Yes: Laceration Repair Tetanus Immunization: Yes: Up to Date Antibiotics Prescribed: No Past History - Travel Traveled outside of the country in the last 30 days: No - Past Medical History Allergies/Adverse Reactions: Allergies Allergy/AdvReac Type Severity Reaction Status Date / Time No Known Allergies Allergy Verified 12/11/18 15:39 Home Medications: Ambulatory Orders Tenofovir Disoproxil Fumarate [Viread -] 300 mg PO DAILY 05/25/17 COPD: No Disorders: Yes (bph) - Immunization History Immunization Up to Date: No - Suicide/Smoking/Psychosocial Hx Smoking History: Never smoked Have you smoked in the past 12 months: No Information on smoking cessation initiated: No Hx Alcohol Use: No Drug/Substance Use Hx: No Hx Substance Use Treatment: No Suture Removal/Wound Check PE - Physical Exam Laceration/Wound Check Symptoms: reports: None Current Severity Level: None Location of Laceration/Wound: right: Hand Pain Radiation: None *Review of Systems - Review of Systems Able to Perform ROS?: Yes Constitutional: No: Chills, Fever HEENTM: No: Nose Pain, Nose Congestion Respiratory: No: Cough ABD/GI: No: Nausea, Poor Appetite : No: Incontinence *Physical Exam - Vital Signs Last Vital Signs Temp Pulse Resp BP Pulse Ox 98.6 F 68 16 115/73 99 12/21/18 15:23 12/21/18 15:23 12/21/18 15:23 12/21/18 15:23 12/21/18 15:23 - Physical Exam General Appearance: Yes: Nourished, Appropriately Dressed HEENT: positive: CARON, Pharynx Normal Neck: positive: Supple Respiratory/Chest: positive: Lungs Clear Cardiovascular: positive: Regular Rate Extremity: positive: Other (healed , well approximated wound to right hand, sutures removed intact. ) Moderate Sedation - Procedure Monitoring Vital Signs: Procedure Monitoring Vital Signs Temperature 98.6 F 12/21/18 15:23 Pulse Rate 68 12/21/18 15:23 Respiratory Rate 16 12/21/18 15:23 Blood Pressure 115/73 12/21/18 15:23 O2 Sat by Pulse Oximetry (%) 99 12/21/18 15:23 Medical Decision Making - Medical Decision Making 12/21/18 15:39 63 here for suture removal sutures removed, instructed to keep area cleaned and dry until completely healed *DC/Admit/Observation/Transfer Diagnosis at time of Disposition: Encounter for removal of sutures - Discharge Dispostion Disposition: HOME Condition at time of disposition: Good Decision to Admit order: No - Referrals - Patient Instructions Printed Discharge Instructions: DI for Suture Removal Additional Instructions: Please keep area clean and dry Cover at work, leave open at home - Post Discharge Activity Forms/Work/School Notes: Back to Work
== END 2018-12-21 15:44 | disposition home or self-care (01) ==
LOC: JERFT 15:08
DX: Z48.817 Encounter for surgical aftercare following surgery on the skin and subcutaneous tissue (principal); Z48.02 Encounter for removal of sutures
CPT/HCPCS: 99281-25